=== PATIENT | male | born 1975 | race Caucasian/White ===

== ENCOUNTER 2016-12-04 11:28 | Emergency (ER) | payer BC ==
--- NOTE | 2016-12-04 11:35 | UC ---
Back Pain HPI - HPI Summary HPI Summary: 41 year old male with a history of cardiac stents presents with complains of left sided chest pain with radiation to his left arm. - History of Current Complaint Stated Complaint: BACK/STOMACH PAIN,BLOATING Time Seen by Provider: 12/04/16 11:34 - Allergies/Home Medications Allergies/Adverse Reactions: Allergies Allergy/AdvReac Type Severity Reaction Status Date / Time No Known Allergies Allergy Verified 01/22/16 17:17 PMH/Surg Hx/FS Hx/Imm Hx Cardiovascular History: Cardiac Disease - Surgical History Surgery Procedure, Year, and Place: Tonsillectomy at 7 yoa. tubes in ears - Family History Known Family History: Positive: Unknown, Cardiac Disease, Hypertension, Diabetes - Social History Alcohol Use: Occasionally Alcohol Amount: 5-12 beers a month Substance Use Type: None Smoking Status (MU): Never Smoked Tobacco Type: Smokeless Tobacco Amount Used/How Often: 2 - Immunization History Most Recent Influenza Vaccination: 2014 Most Recent Tetanus Shot: 2014 Most Recent Pneumonia Vaccination: none Review of Systems Constitutional: Fatigue Skin: Negative Eyes: Negative ENT: Negative Respiratory: Negative Cardiovascular: Palpitations, Chest Pain Gastrointestinal: Negative Genitourinary: Negative Motor: Negative Neurovascular: Negative Musculoskeletal: Negative Neurological: Negative Psychological: Negative All Other Systems Reviewed And Are Negative: Yes Physical Exam Triage Information Reviewed: Yes Vital Signs Reviewed: Yes Eye Exam: Normal ENT Exam: Normal Dental Exam: Normal Neck exam: Normal Neck: Positive: 1 Respiratory Exam: Normal Cardiovascular Exam: Normal Abdominal Exam: Normal Musculoskeletal Exam: Normal Neurological Exam: Normal Psychological Exam: Normal Skin Exam: Normal Back Pain Course/Dx - Differential Dx/Diagnosis Provider Diagnoses: chest pain Discharge - Discharge Plan Condition: Guarded Disposition: AGAINST MEDICAL ADVICE Patient Education Materials: Acute Low Back Pain (ED), Low Back Strain (ED) Referrals: Felix Lamb MD [Primary Care Provider] -
[2016-12-04] MEDS ORDERED: Aspirin Low Dose CHEW TAB* 81 MG PO ONE (11:47)
[2016-12-04 12:06] VITALS: BP 146/92
== END 2016-12-04 12:00 | disposition left against medical advice (07) ==
LOC: UCCORT 11:28
DX: R07.9 Chest pain, unspecified (principal); I25.10 Atherosclerotic heart disease of native coronary artery without angina pectoris; I44.7 Left bundle-branch block, unspecified; Z95.5 Presence of coronary angioplasty implant and graft
CPT/HCPCS: 93005; 99212; A9270-GY; G0463